=== PATIENT | male | born 1960 ===

== ENCOUNTER 2017-06-30 07:36 | Day surgery (SDC) | payer OTHER ==
[2017-06-30 07:49] VITALS: BMI 27.3
[2017-06-30] MEDS ORDERED: Lactated Ringer's 500 ML IV ONE (08:03)
[2017-06-30] MEDS ORDERED: Lidocaine 2% MPF (5 ml) Inj ONE (08:17)
[2017-06-30] MEDS ORDERED: Propofol 10 mg/ml Inj (20 ML) ONE (08:17)
[2017-06-30] MEDS ORDERED: cefTRIAXone (Rocephin) 1 gm Inj ONE (08:33)
[2017-06-30] MEDS ORDERED: Gentamicin 80mg/50ml NS 80 MG/50 ML BAG IVPB ONE (08:33)
[2017-06-30] MEDS ORDERED: Gentamicin 80mg/50ml NS 80 MG/50 ML BAG IVPB STA (08:45)
[2017-06-30 09:24] VITALS: TEMP 96.8
[2017-06-30 09:32] VITALS: BP 141/70; PULSE 57; RESP 14; O2SAT 100
--- NOTE | 2017-06-30 12:53 | OP ---
PROCEDURE DATE: 06/30/2017 PREOPERATIVE DIAGNOSIS: Benign prostatic hypertrophy with elevated prostate-specific antigen. POSTOPERATIVE DIAGNOSIS: Benign prostatic hypertrophy with elevated prostate-specific antigen. PROCEDURE: Transrectal ultrasound of the prostate with multiple core biopsies. DESCRIPTION OF PROCEDURE: The patient was placed on the operating table in left lateral decubitus. He was given IV sedation. At this time, a transrectal ultrasound probe was inserted. The data is as follows: Prostate was measured at 34 gm. PSA is 4.8. 12-core biopsies were taken, left and right side, individually identified. Once this was done, the ultrasound probe was removed. The patient then was taken from the operating room in good condition. Blood loss was minimal. Nena Preston MD
--- NOTE | 2017-07-01 09:47 | US ---
PROCEDURE: Ultrasound guidance for prostate biopsy HISTORY: COMPARISON: None TECHNIQUE: Standard protocol for this study/examination. FINDINGS: Prostate volume 34.75 mL. P PSA 4.1%. Multiple biopsies were performed with ultrasound guidance. IMPRESSION: Documentation of successful prostate biopsies.
== END 2017-06-30 10:01 | disposition home or self-care (01) ==
LOC: H.ENDO 07:36
PROVIDERS: ATTEND Urology
DX: N40.0 Benign prostatic hyperplasia without lower urinary tract symptoms (principal)
CPT/HCPCS: 55700; 82948; 88305; J0696; J1580; J2704; J3010; J7120